=== PATIENT | female | born 1940 | race Caucasian/White ===

== ENCOUNTER 2017-11-02 06:35 | Inpatient (IN) | payer BC ==
[2017-11-02] MEDS ORDERED: EPHEDrine SULFATE 50 MG/5 ML SYG (07:00)
[2017-11-02] MEDS: LACTATED RINGER'S 1,000 ML IV* (07:05)
[2017-11-02] MEDS ORDERED: LIDOCAINE 2% (SDV) 5 ML INJ (07:41)
[2017-11-02] MEDS ORDERED: PROPOFOL 20 ML (07:41)
[2017-11-02] MEDS ORDERED: MIDAZOLAM 1 MG/ML 2 ML INJ (07:42)
[2017-11-02] MEDS ORDERED: BUPIVACAINE 0.75%/DEXT (SPINAL) 2 ML INJ (07:42)
[2017-11-02] MEDS: CEFAZOLIN 2 GM/50 ML (PMX) 50 ML IVPB (08:00)
[2017-11-02] MEDS: TRANEXAMIC ACID 1,000 MG in NS 100 ML PRE-OP X1 IVPB (08:00)
[2017-11-02] MEDS: BACITRACIN 50000 UNITS INJ (08:23)
[2017-11-02] MEDS: POLYMYXIN B 500000 UNIT INJ (08:24)
[2017-11-02] MEDS ORDERED: LABETALOL HCL 20MG INJ IV (08:30)
[2017-11-02] MEDS ORDERED: ONDANSETRON 4 MG INJ IV (08:30)
[2017-11-02] MEDS ORDERED: FENTAnyl 50 MCG/ML VIAL IV ×3 (08:30)
[2017-11-02] MEDS ORDERED: METOCLOPRAMIDE 10 MG INJ IV (08:30)
[2017-11-02] MEDS ORDERED: hydrALAzine 20 MG INJ IV (08:30)
[2017-11-02] MEDS ORDERED: MEPERIDINE 25 MG INJ IV (08:30)
[2017-11-02] MEDS ORDERED: MIDAZOLAM 1 MG/ML 2 ML INJ IV (08:30)
[2017-11-02] MEDS ORDERED: DIPHENHYDRAMINE 50 MG INJ IV (08:30)
[2017-11-02] MEDS ORDERED: METOCLOPRAMIDE 10 MG INJ (08:33)
[2017-11-02] MEDS ORDERED: ONDANSETRON 4 MG INJ (08:33)
[2017-11-02] MEDS ORDERED: CEFAZOLIN 1 GM INJ (08:34)
[2017-11-02] MEDS ORDERED: ATROPINE 1 MG/10 ML SYRINGE (08:34)
[2017-11-02] MEDS: TRANEXAMIC ACID 1,000 MG in NS 100 ML INTRA-OP X1 IVPB (09:15)
[2017-11-02] MEDS ORDERED: NACL 0.9% 3 ML SYG IV (09:30)
[2017-11-02] MEDS: EPHEDrine SULFATE 50 MG/5 ML SYG IV (10:00)
[2017-11-02] MEDS: CEFAZOLIN 1 GM/50 ML (PMX) 50 ML IVPB ×2 (10:06→18:03)
[2017-11-02] MEDS: SOD CHLORIDE 0.9% 1,000 ML IV (11:37)
[2017-11-02] MEDS: ACETAMINOPHEN 500 MG TAB PO ×2 (12:00→18:03)
[2017-11-02 12:33] LABS: INR 1.01; PROTIME 13.4 Sec (11.9-14.9)
[2017-11-02] MEDS: ASPIRIN 81 MG TAB PO (21:02)
[2017-11-03] MEDS: ACETAMINOPHEN 500 MG TAB PO ×3 (00:11→13:10)
[2017-11-03] MEDS: SOD CHLORIDE 0.9% 1,000 ML IV (00:11)
[2017-11-03] MEDS: CEFAZOLIN 1 GM/50 ML (PMX) 50 ML IVPB (02:00)
[2017-11-03 05:11] LABS: ADD MAN DIFF? NO
[2017-11-03 05:17] LABS: WHITE BLOOD COUNT 6.8 10^3/ul (4.8-10.8)
[2017-11-03 05:17] LABS: BASOPHILS % 0.1 % (0.0-2.0); EOSINOPHILS % 0.4 % (0.0-7.0); HEMATOCRIT 30.8 % (37.0-47.0); HEMOGLOBIN 9.9 g/dl (12.0-16.0); LYMPHOCYTES # 0.9 10^3/ul (0.8-2.9); LYMPHOCYTES % 13.6 % (15.0-51.0); MEAN CORPUSCULAR HEMOGLOBIN 28.3 pg (29.0-33.0); MEAN CORPUSCULAR HGB CONC 32.1 g/dl (32.0-37.0); MONOCYTE # 0.8 10^3/ul (0.3-0.9); MONOCYTES % 11.4 % (0.0-11.0); NEUTROPHIL # 5.1 10^3/ul (1.6-7.5); NEUTROPHILS % 74.1 % (39.0-77.0); PLATELET COUNT 214 10^3/UL (140-415); RED CELL DISTRIBUTION WIDTH 14.6 % (11.5-14.5)
[2017-11-03 05:35] LABS: INR 1.02; PROTIME 13.5 Sec (11.9-14.9); PT RATIO 1.1
[2017-11-03 05:48] LABS: ANION GAP 11 (8-16); BLOOD UREA NITROGEN 13 mg/dl (7-20); CALCIUM 8.7 mg/dl (8.4-10.2); CARBON DIOXIDE 23 mmol/L (21-31); CHLORIDE 110 mmol/L (97-110); CREATININE 0.75 mg/dl (0.44-1.00); GLUCOSE 128 mg/dl (70-220); POTASSIUM 3.5 mmol/L (3.5-5.1); SODIUM 140 mmol/L (135-144)
[2017-11-03] MEDS: LEVOTHYROXINE 50 MCG TAB PO ×2 (07:00→09:38)
[2017-11-03] MEDS ORDERED: PATIENT'S OWN MEDICATION PO (09:00)
[2017-11-03] MEDS ORDERED: CELECOXIB 200 MG CAP PO (09:00)
[2017-11-03] MEDS: DOCUSATE SODIUM 100 MG CAP PO ×2 (09:00→09:38)
[2017-11-03] MEDS ORDERED: ONDANSETRON 4 MG INJ IV (09:30)
[2017-11-03] MEDS: ASPIRIN 81 MG TAB PO (09:38)
[2017-11-03] MEDS: AMLODIPINE 2.5 MG TAB PO (09:39)
[2017-11-03] MEDS: METOPROLOL 50 MG TAB PO (09:39)
[2017-11-03 11:50] LABS: FREE T4 (FREE THYROXINE) 1.54 ng/dl (0.85-1.93)
[2017-11-03] MEDS: CELECOXIB 100 MG CAP PO (13:11)
== END 2017-11-03 17:35 | DRG 470 ==
LOC: REC 06:35 → MS1 11:24
PROC: 0SR902A Replacement of Right Hip Joint with Metal on Polyethylene Synthetic Substitute, Uncemented, Open Approach (ICD-10-PCS; principal; 2017-11-02 07:44)
DX: M16.11 Unilateral primary osteoarthritis, right hip (principal); I10 Essential (primary) hypertension; E03.9 Hypothyroidism, unspecified; Z96.642 Presence of left artificial hip joint
CPT/HCPCS: 73530; 80048; 84439; 84443; 85025; 85610; 86850; 86900; 86901; 87081; 88304; 88311; 97110; 97116; 97161; 97530